=== PATIENT | male | born 1945 | race Caucasian/White ===

== ENCOUNTER 2018-10-02 19:13 | Emergency (ER) | payer OTHER ==
[~2018-10-02] VITALS: Ht 182.9 cm; Wt 99.8 kg
[2018-10-02] MEDS ORDERED: SODIUM CHLORIDE 0.9% 1,000 ML IV ONE (20:00)
[2018-10-02] MEDS ORDERED: InsuLIN REG 1unit/0.01ml Soln (100units/ml) IV ONE (20:00)
[2018-10-02 20:32] VITALS: BP 139/73
== END 2018-10-02 20:26 | disposition home or self-care (01) ==
LOC: EDBD 19:13 → ER 19:29
DX: R04.0 Epistaxis (principal); I11.0 Hypertensive heart disease with heart failure; I50.9 Heart failure, unspecified; E11.9 Type 2 diabetes mellitus without complications; E78.5 Hyperlipidemia, unspecified; I25.2 Old myocardial infarction; Z98.61 Coronary angioplasty status
CPT/HCPCS: 71045; 82962; 94761

== ENCOUNTER 2019-09-03 15:35 | Inpatient (IN) | payer OTHER ==
[~2019-09-03] VITALS: Ht 182.9 cm; Wt 108.0 kg
[2019-09-03] MEDS ORDERED: ACETAMINOPHEN 650 MG RECT SUPP PR ONE (15:45)
[2019-09-03] MEDS ORDERED: SODIUM CHLORIDE 0.9% 1,000 ML IV ONE ×2 (15:45→16:15)
[2019-09-03 16:04] LABS: Urine WBC None Seen /hpf (0 - 3)
[2019-09-03 16:11] LABS: Basophils # (auto) 0 10 ^3/uL (0-0.2); Basophils % (auto) 0.3 % (0.0-2.0); Eosinophils # (auto) 0 10 ^3/uL (0-0.8); Eosinophils % (auto) 0.3 % (0.0-7.0); Hematocrit 44.7 % (41.0-53.0); Hemoglobin 15.3 g/dL (13.5-17.5); Lymphocytes % (auto) 21.9 % (10.0-50.0); Mean Corpuscular Hemoglobin 28.9 pg (28.0-32.0); Mean Corpuscular Hgb Conc. 34.3 g/dL (32.0-36.0); Mean Corpuscular Volume 84.2 fL (80.0-100.0); Neutrophils # (auto) 9.5 10 ^3/uL (1.6-8.6); Neutrophils % (auto) 70.5 % (37.0-80.0); Nucleated Red Blood Cells % 0.1 %; Platelet Count (auto) 235 10^3/uL (140-450); Red Blood Cells 5.31 10^6/uL (4.5-5.90); Red Cell Distribution Width 14.5 % (11.8-14.3); White Blood Cell 13.5 10^3/uL (4.4-10.8)
[2019-09-03 16:18] LABS: Urine Amorphous Crystal FEW /hpf (None Seen); Urine Bacteria NONE SEEN /hpf (None Seen); Urine Blood 2+ /uL (Negative); Urine Specific Gravity 1.023 (1.001-1.035)
[2019-09-03 16:23] LABS: Albumin 3.2 g/dL (3.4-5.0); BUN/Creatinine Ratio 12.3; Calcium 8.8 mg/dL (8.5-10.1); Potassium 3.1 mmol/L (3.5-5.1)
[2019-09-03 16:27] LABS: INR 1.02 (0.9-1.15); Partial Thromboplastin Time 24.3 sec (23.64-32.05)
[2019-09-03 16:28] LABS: Bilirubin, Total 0.6 mg/dL (0.2-1.0); Total Protein 6.6 g/dL (6.4-8.2)
[2019-09-03 16:32] LABS: Alcohol, Urine < 3.0 mg/dL (0-5); Amphetamine Screen, Urine NEGATIVE (NEGATIVE); Barbiturate Scree,Urine NEGATIVE (NEGATIVE); Benzodiazephine Screen, Urine NEGATIVE (NEGATIVE); Cannabinoid Screen, Urine NEGATIVE (NEGATIVE); Cocaine Screen, Urine NEGATIVE (NEGATIVE); Opiate Scree,Urine NEGATIVE (NEGATIVE); Phencyclidine Screen, Urine NEGATIVE (NEGATIVE)
[2019-09-03] MEDS ORDERED: POTASSIUM EFFERVESENT TAB 25 MEQ PO ONE (17:45)
[2019-09-03] MEDS ORDERED: ASPirin-EC 81 mg tab PO ONE (17:45)
[2019-09-03] MEDS ORDERED: cefTRIAXone 1GM/50ML D5W 50 ML IV ONE (18:15)
[2019-09-03] MEDS ORDERED: ENOXAPARIN SOD 100 MG/1 ML SYRINGE SC ONE (21:00)
[2019-09-03] MEDS ORDERED: ONDANSETRON HCL 4 MG/2 ML VIAL IV PRN (21:00)
[2019-09-03] MEDS ORDERED: TEMAZEPAM 15 MG CAP PO PRN (21:00)
[2019-09-03] MEDS ORDERED: ACETAMINOPHEN 325 MG TAB PO PRN (21:00)
[2019-09-03] MEDS ORDERED: HEPARIN DRIP/D5W 100UNITS/ML 250 ML IV SCH (21:08)
[2019-09-03] MEDS ORDERED: HEPARIN SODIUM (PORCINE) 5000 UNITS/ML 1ML VIAL IV ONE (21:15)
[2019-09-03] MEDS ORDERED: NITROGLYCERIN 0.4 MG SL TAB SL PRN (21:30)
[2019-09-03] MEDS ORDERED: MORPHINE SULF INJ 2 MG/ML SYRINGE 1ML IV PRN (21:30)
[2019-09-03] MEDS ORDERED: ATORVASTATIN 20 MG TAB PO ONE (21:45)
[2019-09-03] MEDS ORDERED: cloNIDine HCL 0.1 MG TAB PO ONE (22:15)
[2019-09-03] MEDS: cloNIDine HCL 0.1 MG TAB PO PRN (22:29)
[2019-09-03] MEDS: ENOXAPARIN SOD 60 MG/0.6 ML SYRINGE SC SCH (22:29)
[2019-09-03] MEDS ORDERED: SODIUM CHLORIDE 0.9% 1,000 ML IV SCH (23:00)
[2019-09-04 03:43] VITALS: BP 151/77
[2019-09-04 05:37] VITALS: BP 163/73
[2019-09-04 06:55] LABS: BUN/Creatinine Ratio 13.6
[2019-09-04 08:55] VITALS: BP 155/79
[2019-09-04 09:14] LABS: Basophils # (auto) 0 10 ^3/uL (0-0.2); Basophils % (auto) 0.2 % (0.0-2.0); Eosinophils # (auto) 0 10 ^3/uL (0-0.8); Eosinophils % (auto) 0.3 % (0.0-7.0); Hematocrit 37.2 % (41.0-53.0); Hemoglobin 12.7 g/dL (13.5-17.5); Lymphocytes # (auto) 1.2 10 ^3/uL (0.4-5.4); Lymphocytes % (auto) 14.6 % (10.0-50.0); Mean Corpuscular Hemoglobin 28.9 pg (28.0-32.0); Mean Corpuscular Hgb Conc. 34.1 g/dL (32.0-36.0); Mean Corpuscular Volume 84.8 fL (80.0-100.0); Monocytes # (auto) 0.8 10 ^3/uL (0-1.3); Monocytes % (auto) 9.3 % (0.0-12.0); Neutrophils # (auto) 6.5 10 ^3/uL (1.6-8.6); Neutrophils % (auto) 75.6 % (37.0-80.0); Platelet Count (auto) 121 10^3/uL (140-450); Red Blood Cells 4.39 10^6/uL (4.5-5.90); Red Cell Distribution Width 14.3 % (11.8-14.3); White Blood Cell 8.5 10^3/uL (4.4-10.8)
[2019-09-04] MEDS: CLOPIDOGREL BISULFATE 75 MG TAB PO SCH (09:34)
[2019-09-04] MEDS: PANTOPRAZOLE 40 MG TAB PO SCH (09:34)
[2019-09-04] MEDS: LISINOPRIL 10 MG TAB PO SCH (09:34)
[2019-09-04] MEDS: ENOXAPARIN SOD 60 MG/0.6 ML SYRINGE SC SCH ×2 (09:35→21:31)
[2019-09-04] MEDS: ASPirin 81 mg TAB PO SCH (09:35)
[2019-09-04] MEDS ORDERED: FUROSEMIDE 40 MG TAB PO SCH (10:00)
[2019-09-04 13:00] VITALS: BP 146/83
[2019-09-04] MEDS ORDERED: VANCOMYCIN PER PHARMACY 0 MG IV SCH (13:00)
[2019-09-04] MEDS ORDERED: VANCOMYCIN 1GM/250ML 250 ML IV ONE (13:00)
[2019-09-04] MEDS ORDERED: SODIUM CHLORIDE 0.9% 500 ML IV ONE (13:15)
[2019-09-04] MEDS ORDERED: POTASSIUM CHL 20 Meq TABLET PO ONE (13:15)
[2019-09-04] MEDS ORDERED: SODIUM CHLORIDE 0.9% 1,000 ML IV SCH (13:15)
[2019-09-04] MEDS: SODIUM CHLORIDE 0.9% 1,000 ML IV SCH (15:15)
[2019-09-04 17:07] VITALS: BP 147/79
[2019-09-04] MEDS: PIPERACILLIN-TAZOB 2.25GM 50 ML IV SCH ×2 (17:14→23:31)
[2019-09-04 17:23] LABS: Protein, Urine 252.3 mg/dL (0.0-11.9)
[2019-09-04] MEDS: ATORVASTATIN 20 MG TAB PO SCH (21:31)
[2019-09-04 22:00] VITALS: BP 153/95
[2019-09-05] MEDS: SODIUM CHLORIDE 0.9% 1,000 ML IV SCH ×4 (05:21→23:50)
[2019-09-05 05:27] LABS: Phosphorus 2.3 mg/dL (2.5-4.90); Uric Acid 5.5 mg/dL (3.5-7.2)
[2019-09-05 05:28] LABS: Albumin 2.4 g/dL (3.4-5.0); Calcium 7.7 mg/dL (8.5-10.1); Potassium 3.4 mmol/L (3.5-5.1)
[2019-09-05 05:31] LABS: BUN/Creatinine Ratio 12.6; Bilirubin, Total 0.6 mg/dL (0.2-1.0); Total Protein 4.8 g/dL (6.4-8.2)
[2019-09-05] MEDS: PIPERACILLIN-TAZOB 2.25GM 50 ML IV SCH ×4 (05:31→23:30)
[2019-09-05 05:57] VITALS: BP 151/65
[2019-09-05] MEDS: LISINOPRIL 10 MG TAB PO SCH (08:59)
[2019-09-05] MEDS: PANTOPRAZOLE 40 MG TAB PO SCH (08:59)
[2019-09-05] MEDS: ASPirin 81 mg TAB PO SCH (08:59)
[2019-09-05] MEDS: cloNIDine HCL 0.1 MG TAB PO PRN (08:59)
[2019-09-05] MEDS: CLOPIDOGREL BISULFATE 75 MG TAB PO SCH (08:59)
[2019-09-05 09:00] VITALS: BP 167/79
[2019-09-05] MEDS: ENOXAPARIN SOD 60 MG/0.6 ML SYRINGE SC SCH ×2 (09:00→21:19)
[2019-09-05] MEDS ORDERED: VANCOMYCIN 1GM/250ML 250 ML IV ONE (11:00)
[2019-09-05 13:17] VITALS: BP 161/74
[2019-09-05] MEDS ORDERED: POTASSIUM PHOSPHATE 22 MEQ in SODIUM CHL 0.9% 100 ML IV ONE (14:15)
[2019-09-05 17:00] VITALS: BP 176/77
[2019-09-05] MEDS: ATORVASTATIN 20 MG TAB PO SCH (21:19)
[2019-09-05 22:00] VITALS: BP 153/75
[2019-09-06 05:00] VITALS: BP 167/87
[2019-09-06] MEDS: PIPERACILLIN-TAZOB 2.25GM 50 ML IV SCH ×4 (05:30→23:30)
[2019-09-06] MEDS: SODIUM CHLORIDE 0.9% 1,000 ML IV SCH ×3 (06:33→19:50)
[2019-09-06 06:36] LABS: Potassium 3.4 mmol/L (3.5-5.1)
[2019-09-06 06:43] LABS: Albumin 2.3 g/dL (3.4-5.0); BUN/Creatinine Ratio 10.7; Bilirubin, Total 0.6 mg/dL (0.2-1.0); Calcium 7.6 mg/dL (8.5-10.1); Total Protein 4.4 g/dL (6.4-8.2)
[2019-09-06 08:29] VITALS: BP_SYST 184; BP_SYST 187; BP_DIAS 92; BP_DIAS 95
[2019-09-06] MEDS: PANTOPRAZOLE 40 MG TAB PO SCH (09:30)
[2019-09-06] MEDS: ASPirin 81 mg TAB PO SCH (09:30)
[2019-09-06] MEDS: CLOPIDOGREL BISULFATE 75 MG TAB PO SCH (09:30)
[2019-09-06] MEDS: LISINOPRIL 10 MG TAB PO SCH (09:31)
[2019-09-06] MEDS ORDERED: VANCOMYCIN 1GM/250ML 250 ML IV ONE (10:00)
[2019-09-06 13:00] VITALS: BP 183/89
[2019-09-06] MEDS: cloNIDine HCL 0.1 MG TAB PO PRN ×2 (13:47→22:10)
[2019-09-06] MEDS ORDERED: DEXTROSE (50%) 50ML SYRG IV PRN ×2 (15:45→16:15)
[2019-09-06 17:01] VITALS: BP 182/89
[2019-09-06] MEDS: ACCU-CHEK COMFORT CURVE STRIP VI SCH ×2 (17:53→23:31)
[2019-09-06] MEDS: InsuLIN REG 1unit/0.01ml Soln (100units/ml) SC SCH ×2 (17:54→23:31)
[2019-09-06] MEDS ORDERED: InsuLIN REG 1unit/0.01ml Soln (100units/ml) SC SCH (18:00)
[2019-09-06] MEDS ORDERED: ACCU-CHEK COMFORT CURVE STRIP VI SCH (18:00)
[2019-09-06] MEDS: ATORVASTATIN 20 MG TAB PO SCH (21:28)
[2019-09-06 22:00] VITALS: BP 170/78
[2019-09-07] VITALS (7 sets, daily range): BP systolic 146–183; BP diastolic 71–92
[2019-09-07] MEDS: SODIUM CHLORIDE 0.9% 1,000 ML IV SCH ×2 (03:03→09:10)
[2019-09-07] MEDS: PIPERACILLIN-TAZOB 2.25GM 50 ML IV SCH (05:30)
[2019-09-07] MEDS: InsuLIN REG 1unit/0.01ml Soln (100units/ml) SC SCH ×3 (05:36→17:27)
[2019-09-07] MEDS: ACCU-CHEK COMFORT CURVE STRIP VI SCH ×3 (05:37→17:26)
[2019-09-07 07:47] LABS: Albumin 2.2 g/dL (3.4-5.0); Calcium 7.5 mg/dL (8.5-10.1); Potassium 3.7 mmol/L (3.5-5.1)
[2019-09-07 07:52] LABS: BUN/Creatinine Ratio 11.1; Bilirubin, Total 0.5 mg/dL (0.2-1.0); Total Protein 4.3 g/dL (6.4-8.2)
[2019-09-07 10:11] LABS: Basophils # (auto) 0 10 ^3/uL (0-0.2); Basophils % (auto) 0.2 % (0.0-2.0); Eosinophils # (auto) 0.1 10 ^3/uL (0-0.8); Eosinophils % (auto) 2.3 % (0.0-7.0); Hematocrit 37.1 % (41.0-53.0); Hemoglobin 12.6 g/dL (13.5-17.5); Lymphocytes # (auto) 0.6 10 ^3/uL (0.4-5.4); Mean Corpuscular Hemoglobin 29.4 pg (28.0-32.0); Mean Corpuscular Hgb Conc. 34.1 g/dL (32.0-36.0); Mean Corpuscular Volume 86.1 fL (80.0-100.0); Monocytes # (auto) 0.4 10 ^3/uL (0-1.3); Monocytes % (auto) 6.4 % (0.0-12.0); Neutrophils # (auto) 5.1 10 ^3/uL (1.6-8.6); Neutrophils % (auto) 81.1 % (37.0-80.0); Platelet Count (auto) 111 10^3/uL (140-450); Red Blood Cells 4.31 10^6/uL (4.5-5.90); Red Cell Distribution Width 14.1 % (11.8-14.3); White Blood Cell 6.3 10^3/uL (4.4-10.8)
[2019-09-07] MEDS: CLOPIDOGREL BISULFATE 75 MG TAB PO SCH (10:20)
[2019-09-07] MEDS: ASPirin 81 mg TAB PO SCH (10:21)
[2019-09-07] MEDS: PANTOPRAZOLE 40 MG TAB PO SCH (10:21)
[2019-09-07] MEDS: LISINOPRIL 10 MG TAB PO SCH (10:21)
[2019-09-07] MEDS: cloNIDine HCL 0.1 MG TAB PO PRN ×2 (10:22→18:47)
[2019-09-07] MEDS ORDERED: VANCOMYCIN 1GM/250ML 250 ML IV ONE (11:00)
[2019-09-07] MEDS ORDERED: levoFLOXacin 250MG 50 ML IV ONE (12:15)
[2019-09-07] MEDS ORDERED: levoFLOXacin 500MG 100 ML IV ONE (12:15)
[2019-09-07] MEDS: levoFLOXacin 250MG 50 ML IV SCH (14:08)
[2019-09-07] MEDS: ATORVASTATIN 20 MG TAB PO SCH (21:18)
[2019-09-08] MEDS: ACCU-CHEK COMFORT CURVE STRIP VI SCH ×5 (00:26→23:59)
[2019-09-08] MEDS: InsuLIN REG 1unit/0.01ml Soln (100units/ml) SC SCH ×5 (00:29→23:58)
[2019-09-08] MEDS: cloNIDine HCL 0.1 MG TAB PO PRN ×2 (00:29→06:30)
[2019-09-08] MEDS: hydrALAZINE HCL 20 MG/ML VL IV PRN (01:55)
[2019-09-08 05:07] VITALS: BP 178/88
[2019-09-08 06:20] LABS: Potassium 3.1 mmol/L (3.5-5.1)
[2019-09-08 06:27] LABS: Albumin 2.1 g/dL (3.4-5.0); BUN/Creatinine Ratio 10.7
[2019-09-08 06:30] LABS: Bilirubin, Total 0.4 mg/dL (0.2-1.0)
[2019-09-08 09:00] VITALS: BP 156/85
[2019-09-08] MEDS: levoFLOXacin 250MG 50 ML IV SCH (09:26)
[2019-09-08] MEDS: LISINOPRIL 10 MG TAB PO SCH (09:27)
[2019-09-08] MEDS: PANTOPRAZOLE 40 MG TAB PO SCH (09:27)
[2019-09-08] MEDS: CLOPIDOGREL BISULFATE 75 MG TAB PO SCH (09:27)
[2019-09-08] MEDS: ASPirin 81 mg TAB PO SCH (09:27)
[2019-09-08] MEDS ORDERED: levoFLOXacin 500MG 100 ML IV SCH (10:00)
[2019-09-08 10:29] LABS: Basophils # (auto) 0 10 ^3/uL (0-0.2); Basophils % (auto) 0.3 % (0.0-2.0); Eosinophils # (auto) 0.1 10 ^3/uL (0-0.8); Eosinophils % (auto) 1.6 % (0.0-7.0); Hematocrit 37.1 % (41.0-53.0); Hemoglobin 12.8 g/dL (13.5-17.5); Lymphocytes # (auto) 0.6 10 ^3/uL (0.4-5.4); Lymphocytes % (auto) 7.7 % (10.0-50.0); Mean Corpuscular Hemoglobin 29.6 pg (28.0-32.0); Mean Corpuscular Hgb Conc. 34.6 g/dL (32.0-36.0); Mean Corpuscular Volume 85.7 fL (80.0-100.0); Monocytes # (auto) 0.6 10 ^3/uL (0-1.3); Monocytes % (auto) 7.2 % (0.0-12.0); Neutrophils # (auto) 6.9 10 ^3/uL (1.6-8.6); Neutrophils % (auto) 83.2 % (37.0-80.0); Platelet Count (auto) 119 10^3/uL (140-450); Red Blood Cells 4.33 10^6/uL (4.5-5.90); Red Cell Distribution Width 14.1 % (11.8-14.3); White Blood Cell 8.2 10^3/uL (4.4-10.8)
[2019-09-08] MEDS ORDERED: POTASSIUM CHL 20 Meq TABLET PO ONE (10:30)
[2019-09-08] MEDS ORDERED: amLODIPine BESYLATE 5 MG TAB PO ONE (12:30)
[2019-09-08 13:00] VITALS: BP 168/77
[2019-09-08] MEDS: hydrALAZINE HCL 25 MG TAB PO SCH ×2 (13:49→21:17)
[2019-09-08 17:00] VITALS: BP 147/76
[2019-09-08] MEDS: ATORVASTATIN 20 MG TAB PO SCH (21:16)
[2019-09-08 23:19] VITALS: BP 162/69
[2019-09-09 05:47] VITALS: BP 161/80
[2019-09-09] MEDS: InsuLIN REG 1unit/0.01ml Soln (100units/ml) SC SCH ×3 (06:14→18:12)
[2019-09-09] MEDS: ACCU-CHEK COMFORT CURVE STRIP VI SCH ×3 (06:17→18:09)
[2019-09-09] MEDS: hydrALAZINE HCL 25 MG TAB PO SCH ×3 (06:17→22:31)
[2019-09-09 06:39] LABS: Basophils # (auto) 0 10 ^3/uL (0-0.2); Basophils % (auto) 0.3 % (0.0-2.0); Eosinophils # (auto) 0.1 10 ^3/uL (0-0.8); Eosinophils % (auto) 1.3 % (0.0-7.0); Hemoglobin 13.6 g/dL (13.5-17.5); Lymphocytes # (auto) 0.6 10 ^3/uL (0.4-5.4); Lymphocytes % (auto) 7.7 % (10.0-50.0); Mean Corpuscular Hemoglobin 29.6 pg (28.0-32.0); Mean Corpuscular Volume 86.9 fL (80.0-100.0); Monocytes # (auto) 0.5 10 ^3/uL (0-1.3); Monocytes % (auto) 7.2 % (0.0-12.0); Neutrophils % (auto) 83.5 % (37.0-80.0); Platelet Count (auto) 124 10^3/uL (140-450); Red Cell Distribution Width 14.1 % (11.8-14.3); White Blood Cell 7.2 10^3/uL (4.4-10.8)
[2019-09-09 06:57] LABS: BUN/Creatinine Ratio 10.4; Calcium 8.3 mg/dL (8.5-10.1); Potassium 3.3 mmol/L (3.5-5.1)
[2019-09-09 09:00] VITALS: BP 161/70
[2019-09-09] MEDS ORDERED: amLODIPine BESYLATE 5 MG TAB PO SCH (10:00)
[2019-09-09] MEDS: levoFLOXacin 250MG 50 ML IV SCH (10:00)
[2019-09-09] MEDS: PANTOPRAZOLE 40 MG TAB PO SCH (10:11)
[2019-09-09] MEDS: ASPirin 81 mg TAB PO SCH (10:11)
[2019-09-09] MEDS: CLOPIDOGREL BISULFATE 75 MG TAB PO SCH (10:11)
[2019-09-09 13:30] VITALS: BP 165/82
[2019-09-09 16:23] VITALS: BP 159/82
[2019-09-09 22:19] VITALS: BP 159/83
[2019-09-09] MEDS: ATORVASTATIN 20 MG TAB PO SCH (22:30)
[2019-09-10] MEDS: ACCU-CHEK COMFORT CURVE STRIP VI SCH ×4 (00:22→17:09)
[2019-09-10] MEDS: InsuLIN REG 1unit/0.01ml Soln (100units/ml) SC SCH ×4 (00:24→17:09)
[2019-09-10] MEDS: hydrALAZINE HCL 20 MG/ML VL IV PRN (04:55)
[2019-09-10 05:34] VITALS: BP 192/78
[2019-09-10 05:59] LABS: Basophils # (auto) 0 10 ^3/uL (0-0.2); Basophils % (auto) 0.3 % (0.0-2.0); Eosinophils # (auto) 0.1 10 ^3/uL (0-0.8); Hemoglobin 13.8 g/dL (13.5-17.5); Lymphocytes # (auto) 0.8 10 ^3/uL (0.4-5.4); Lymphocytes % (auto) 9.6 % (10.0-50.0); Mean Corpuscular Hgb Conc. 35.3 g/dL (32.0-36.0); Mean Corpuscular Volume 84.9 fL (80.0-100.0); Monocytes # (auto) 0.6 10 ^3/uL (0-1.3); Monocytes % (auto) 7.3 % (0.0-12.0); Neutrophils # (auto) 6.5 10 ^3/uL (1.6-8.6); Neutrophils % (auto) 81.8 % (37.0-80.0); Nucleated Red Blood Cells % 0.1 %; Platelet Count (auto) 135 10^3/uL (140-450); Red Blood Cells 4.59 10^6/uL (4.5-5.90); Red Cell Distribution Width 14.2 % (11.8-14.3); White Blood Cell 7.9 10^3/uL (4.4-10.8)
[2019-09-10 06:15] LABS: Calcium 8.4 mg/dL (8.5-10.1); Potassium 3.1 mmol/L (3.5-5.1)
[2019-09-10] MEDS: hydrALAZINE HCL 25 MG TAB PO SCH ×3 (06:21→21:56)
[2019-09-10] MEDS: cloNIDine HCL 0.1 MG TAB PO PRN ×2 (08:06→13:22)
[2019-09-10] MEDS ORDERED: POTASSIUM CHL 20 Meq TABLET PO ONE (08:45)
[2019-09-10] MEDS ORDERED: POTASSIUM CHL 20MEQ/100ML 100 ML IV ONE (08:45)
[2019-09-10 09:00] VITALS: BP 171/78
[2019-09-10] MEDS ORDERED: METOPROLOL TARTRATE 50 MG TAB PO ONE (10:15)
[2019-09-10] MEDS: levoFLOXacin 250MG 50 ML IV SCH (10:16)
[2019-09-10] MEDS: amLODIPine BESYLATE 5 MG TAB PO SCH (10:18)
[2019-09-10] MEDS: CLOPIDOGREL BISULFATE 75 MG TAB PO SCH (10:18)
[2019-09-10] MEDS: ASPirin 81 mg TAB PO SCH (10:19)
[2019-09-10] MEDS: PANTOPRAZOLE 40 MG TAB PO SCH (10:19)
[2019-09-10 13:00] VITALS: BP 179/76
[2019-09-10 17:00] VITALS: BP 140/67
[2019-09-10] MEDS: ATORVASTATIN 20 MG TAB PO SCH (21:56)
[2019-09-10] MEDS: METOPROLOL TARTRATE 50 MG TAB PO SCH (21:57)
[2019-09-10 22:00] VITALS: BP 148/77
[2019-09-11] MEDS: ACCU-CHEK COMFORT CURVE STRIP VI SCH ×5 (01:05→23:19)
[2019-09-11] MEDS: InsuLIN REG 1unit/0.01ml Soln (100units/ml) SC SCH ×5 (01:06→23:29)
[2019-09-11] MEDS: cloNIDine HCL 0.1 MG TAB PO PRN (01:15)
[2019-09-11 02:00] VITALS: BP 151/79
[2019-09-11 05:00] VITALS: BP 142/68
[2019-09-11] MEDS: hydrALAZINE HCL 25 MG TAB PO SCH ×3 (06:41→21:50)
[2019-09-11 09:00] VITALS: BP 143/66
[2019-09-11] MEDS: CLOPIDOGREL BISULFATE 75 MG TAB PO SCH (09:29)
[2019-09-11] MEDS: METOPROLOL TARTRATE 50 MG TAB PO SCH ×2 (09:29→21:51)
[2019-09-11] MEDS: ASPirin 81 mg TAB PO SCH (09:29)
[2019-09-11] MEDS: PANTOPRAZOLE 40 MG TAB PO SCH (09:29)
[2019-09-11] MEDS: amLODIPine BESYLATE 5 MG TAB PO SCH (09:30)
[2019-09-11] MEDS: levoFLOXacin 250MG 50 ML IV SCH (09:30)
[2019-09-11 13:00] VITALS: BP 149/92
[2019-09-11 17:00] VITALS: BP 147/65
[2019-09-11] MEDS: ATORVASTATIN 20 MG TAB PO SCH (21:50)
[2019-09-11 22:00] VITALS: BP 149/81
[2019-09-12] MEDS: hydrALAZINE HCL 20 MG/ML VL IV PRN (00:04)
[2019-09-12] MEDS: ACCU-CHEK COMFORT CURVE STRIP VI SCH ×2 (05:21→13:11)
[2019-09-12] MEDS: hydrALAZINE HCL 25 MG TAB PO SCH (05:31)
[2019-09-12] MEDS: InsuLIN REG 1unit/0.01ml Soln (100units/ml) SC SCH ×2 (05:32→13:11)
[2019-09-12 05:49] VITALS: BP 162/72
[2019-09-12 09:00] VITALS: BP 141/70
[2019-09-12] MEDS ORDERED: levoFLOXacin 250 MG TAB PO SCH (10:00)
[2019-09-12] MEDS: ASPirin 81 mg TAB PO SCH (10:07)
[2019-09-12] MEDS: PANTOPRAZOLE 40 MG TAB PO SCH (10:07)
[2019-09-12] MEDS: CLOPIDOGREL BISULFATE 75 MG TAB PO SCH (10:07)
[2019-09-12] MEDS: amLODIPine BESYLATE 5 MG TAB PO SCH (10:08)
[2019-09-12] MEDS: METOPROLOL TARTRATE 50 MG TAB PO SCH (10:08)
[2019-09-12 13:26] VITALS: BP 164/74
== END 2019-09-12 15:45 | DRG 871 ==
LOC: EDBD 15:35 → ER 15:35 → TELE 15:36 → TELE-CENTR 22:47 → CENTRAL 09-11 04:23 → TELE-CENTR 09-11 06:38
PROVIDERS: ADMIT Nurse Practitioner; ATTEND Family Medicine
DX: A41.9 Sepsis, unspecified organism (principal); I21.4 Non-ST elevation (NSTEMI) myocardial infarction; G93.41 Metabolic encephalopathy; N17.0 Acute kidney failure with tubular necrosis; R65.21 Severe sepsis with septic shock; I50.42 Chronic combined systolic (congestive) and diastolic (congestive) heart failure; L03.116 Cellulitis of left lower limb; N18.4 Chronic kidney disease, stage 4 (severe); I13.0 Hypertensive heart and chronic kidney disease with heart failure and stage 1 through stage 4 chronic kidney disease, or unspecified chronic kidney disease; E87.6 Hypokalemia; I25.10 Atherosclerotic heart disease of native coronary artery without angina pectoris; B96.89 Other specified bacterial agents as the cause of diseases classified elsewhere; D63.1 Anemia in chronic kidney disease; E66.01 Morbid (severe) obesity due to excess calories; E83.39 Other disorders of phosphorus metabolism; E86.1 Hypovolemia; G62.9 Polyneuropathy, unspecified; B95.7 Other staphylococcus as the cause of diseases classified elsewhere; E11.22 Type 2 diabetes mellitus with diabetic chronic kidney disease; E78.00 Pure hypercholesterolemia, unspecified; E78.5 Hyperlipidemia, unspecified; E86.0 Dehydration; Z81.8 Family history of other mental and behavioral disorders; Z83.3 Family history of diabetes mellitus; I25.2 Old myocardial infarction
CPT/HCPCS: 36415; 51702; 70450; 71045; 72125; 76775; 80048; 80053; 80202; 80307; 81001; 82306; 82550; 82553; 82570; 82962; 83036; 83605; 83735; 83880; 83970; 84100; 84156; 84300; 84484; 84550; 85025; 85379; 85610; 85730; 87040; 87077; 87081; 87186; 87804; 93005; 93306; 96361; 96365; 97163; 99291; G0378; J0696; J1815; J2543; J3480